=== PATIENT | female | born 1950 | race Caucasian/White ===

== ENCOUNTER 2024-10-23 15:10 | Outpatient (CLI) | payer MEDICARE, MEDICAID ==
--- NOTE | 2024-10-24 05:49 | RADIOLOGY REPORT ---
INDICATION: ABNORMALITIES FOR HYPERREFLEXIA, LOWER BACK AND HIP COMPARISON: None TECHNIQUE: Frontal, lateral and cone-down lateral views of the lumbar spine were obtained. FINDINGS: The lumbar vertebral alignment is normal. Multilevel intervertebral disc space narrowing. There is facet arthropathy at L3-L4, L4-L5 and L5-S1 . No acute fracture, vertebral compression deformity or aggressive osseous lesions. The paravertebral soft tissues are grossly unremarkable. IMPRESSION: 1. No acute fracture. 2. Multilevel degenerative changes in the lumbar spine.
--- NOTE | 2024-10-24 06:25 | RADIOLOGY REPORT ---
CLINICAL INDICATION: ABNORMALITIES FOR HYPERREFLEXIA, LOWER BACK AND HIP TECHNIQUE: DI HIP,BI,CMPLT(AP PELVIS) Comparison: None FINDINGS/IMPRESSION: : There is no evidence of acute fracture or dislocation. Soft tissues are unremarkable. Moderate degenerative changes of bilateral hips.
--- NOTE | 2024-10-24 06:35 | RADIOLOGY REPORT ---
[facility] INDICATION: ABNORMALITIES FOR HYPERREFLEXIA, LOWER BACK AND HIP COMPARISON: None TECHNIQUE: Frontal, lateral and oblique views of the cervical spine were obtained. FINDINGS: The cervical vertebral alignment is normal. The predental space is normal. There is multilevel intervertebral disc space narrowing. There is bilateral neural foraminal stenosis at C3-C4 and C4-C5. There are circumscribed lytic lesions in the C5 and C6 vertebral bodies. No acute fracture, vertebral compression deformity or aggressive osseous lesions. The imaged lung apices are unremarkable. IMPRESSION: 1. No acute fracture. 2. Multilevel cervical spondylosis. 3. Circumscribed lytic lesions in the cervical vertebral bodies for example C5 and C6. MRI of the ce rvical spine without and with intravenous contrast is recommended for further evaluation.
== END 2024-10-23 23:59 | disposition home or self-care (01) ==
LOC: RAD 15:10
PROVIDERS: ATTEND Physician Assistant
DX: M47.26 Other spondylosis with radiculopathy, lumbar region (principal); R29.2 Abnormal reflex; M16.0 Bilateral primary osteoarthritis of hip; M54.41 Lumbago with sciatica, right side
CPT/HCPCS: 72050; 72110; 73521

== ENCOUNTER 2024-12-21 13:47 | Outpatient (CLI) | payer MEDICARE, MEDICAID ==
[2024-12-20 15:20] LABS: BASOPHILS % (AUTO) 0.9 % (0-1); EOSINOPHILS # (AUTO) 0.1 X10'3 (0-0.9); EOSINOPHILS % (AUTO) 1.7 % (0-6); HEMATOCRIT 42.4 % (35.0-45.0); HEMOGLOBIN 14.3 g/dl (12.0-16.0); LYMPHOCYTES # (AUTO) 1.8 X10'3 (1.1-4.8); LYMPHOCYTES % (AUTO) 33.4 % (21-51); MEAN CORPUSCULAR HEMOGLOBIN 30.1 PG (27.0-31.0); MEAN CORPUSCULAR HGB CONC 33.7 g/dL (33.0-36.5); MEAN CORPUSCULAR VOLUME 89.4 FL (78-98); MEAN PLATELET VOLUME 7.1 FL (7.4-10.4); MONOCYTES # (AUTO) 0.4 X10'3 (0-0.9); MONOCYTES % (AUTO) 8.3 % (2-12); NEUTROPHILS % (AUTO) 55.7 % (42-75); PLATELET COUNT 381 X10'3 (140-440); RED BLOOD COUNT 4.75 X10'6 (4.20-5.60); RED CELL DISTRIBUTION WIDTH 14.4 % (11.5-14.5); WHITE BLOOD COUNT 5.3 X10'3 (4.5-11.0)
[2024-12-20 15:25] LABS: ALANINE AMINOTRANSFERASE 32 U/L (12-78); ALBUMIN 3.4 G/DL (3.4-5.0); ALBUMIN/GLOBULIN RATIO 0.9 (1.1-1.5); ALKALINE PHOSPHATASE 173 IU/L (46-116); ANION GAP 4 (8-16); ASPARTATE AMINO TRANSFERASE 29 U/L (10-37); BILIRUBIN,TOTAL 0.5 MG/DL (0.1-1.0); BLOOD UREA NITROGEN 17 MG/DL (7-18); BUN/CREATININE RATIO 25.8 (10.0-20.0); CHLORIDE 101 MMOL/L (99-107); CREATININE 0.66 MG/DL (0.40-0.90); GLUCOSE 102 MG/DL (70-104); SODIUM 138 MMOL/L (135-145); TOTAL CARBON DIOXIDE 32.9 MMOL/L (24-32); TOTAL PROTEIN 7.3 G/DL (6.4-8.2); eGFR 88 ML/MIN
[2024-12-21] MEDS ORDERED: GADOTERATE MEGLUMINE 7.5 MMOL/15 ML VIAL IV ONE (15:44)
--- NOTE | 2024-12-21 18:16 | RADIOLOGY REPORT ---
PROCEDURE: MR MRI C SPINE Indication: LYTIC LESION OF BONE ON X-RAY COMPARISON: None TECHNIQUE: Multiplanar multisequence images of the the cervical spine are obtained with and without c ontrast. FINDINGS: Cervical vertebral body heights are maintained. 2 mm anterolisthesis of C7 upon T1. Severe multilevel disc space narrowing. No prevertebral edema. No abnormal marrow edema. No abnormal marrow enhancemen t corresponding to the previously described lytic lesions. C2-3: Small disc osteophyte complex. No spinal canal stenosis. Mild left neural foraminal stenosis. C3-4: Small disc osteophyte complex narrowing the ventral and dorsal CSF spaces. Thecal sac measures 9 mm AP. Mild spinal canal stenosis. Moderate right and mild left neural foraminal stenosis. C4-5: Disc osteophyte complex narrowing the ventral and dorsal CSF spaces. Thecal sac measures 9 mm A P. Mild spinal canal stenosis. [id number] bilateral neural foraminal stenosis secondary to face t and uncovertebral hypertrophy. C5-6: Disc osteophyte complex narrowing the ventral and dorsal CSF spaces. Thecal sac measures 8 mm A P. [id number] spinal canal stenosis. Moderate bilateral neural foraminal stenosis secondary to facet and uncovertebral hypertrophy. C6-7: Small disc osteophyte complex. Left perineural sleeve cysts measuring 5 mm. Thecal sac measure s 8 mm AP. [id number] spinal canal stenosis. Moderate bilateral neural foraminal stenosis secon nani to facet and uncovertebral hypertrophy. C7-T1: Small disc osteophyte complex. No spinal canal stenosis. No significant neural foraminal steno sis IMPRESSION: No MRI evidence for abnormal enhancing lesion/aggressive process corresponding to the previously desc ribed lytic lesion. Severe cervical degenerative disc disease. [id number] spinal canal stenosis at C5-6 and C6-7. Mild spinal canal stenosis at C3-4, C4-5. Multilevel neural foraminal stenosis as described.
== END 2024-12-21 23:59 | disposition home or self-care (01) ==
LOC: MRI 13:47
PROVIDERS: ATTEND Physician Assistant
DX: M48.02 Spinal stenosis, cervical region (principal); M89.8X9 Other specified disorders of bone, unspecified site; M25.78 Osteophyte, vertebrae
CPT/HCPCS: 36415; 72156; 80053; 85025; A9575

== ENCOUNTER 2025-02-14 12:34 | Outpatient (CLI) | payer MEDICARE, MEDICAID ==
--- NOTE | 2025-02-14 15:10 | RADIOLOGY REPORT ---
PROCEDURE: MR MRI LUMBAR SPINE Indication: RADICULOPATHY, LUMBAR REGION COMPARISON: None TECHNIQUE: Multiplanar multisequence images of the the lumbar spine are obtained. FINDINGS: For the purpose of this examination, there are 5 lumbar vertebral body types counting from the lumbos acral junction. Lumbar dextrocurvature. Lumbar heights maintained. Severe multilevel disc space narrowing with desic cation. T12 vertebral body hemangioma measuring 2.3 cm. Conus terminates at the level of the L1 vert ebral body level. T12-L1: 3 mm disc protrusion. Moderate facet and flavum hypertrophy. No spinal canal stenosis. Adriana re bilateral neural foraminal stenosis. L1-2: 3 mm disc protrusion. Moderate facet and flavum hypertrophy. No spinal canal stenosis. Modera te to severe bilateral neural foraminal stenosis. L2-3: 3 mm disc protrusion. Severe facet and flavum hypertrophy. Thecal sac measures 4 mm AP. Adriana re spinal canal stenosis. Severe left and moderate to severe right neural foraminal stenosis. L4-5: 3 mm disc protrusion. Moderate facet and flavum hypertrophy. Thecal sac measures 9 mm AP. Mil d spinal canal stenosis. Severe bilateral neural foraminal stenosis. L4-5: 3 mm disc protrusion. Severe facet and flavum hypertrophy. Thecal sac measures 6 mm AP. Mode rate spinal canal stenosis. Severe right and moderate to severe left neural foraminal stenosis. L5-S1: 3 mm disc protrusion. Severe facet and flavum hypertrophy. No spinal canal stenosis. Severe bilateral neural foraminal stenosis. IMPRESSION: Severe lumbar degenerative disc disease. Severe spinal canal stenosis L2-3. Moderate spinal canal stenosis L4-5. Mild spinal canal stenosis L4-5. Moderate to severe multilevel neural foraminal stenosis as described.
== END 2025-02-14 23:59 | disposition home or self-care (01) ==
LOC: MRI02 12:34
PROVIDERS: ATTEND Physician Assistant Medical
DX: M51.16 Intervertebral disc disorders with radiculopathy, lumbar region (principal); M48.061 Spinal stenosis, lumbar region without neurogenic claudication; M51.27 Other intervertebral disc displacement, lumbosacral region
CPT/HCPCS: 72148